=== PATIENT | female | born 1985 | race Caucasian/White ===

== ENCOUNTER 2024-07-06 06:50 | Day surgery (SDC) | payer OTHER, SELFPAY ==
[2024-07-06] VITALS (11 sets, daily range): BP systolic 116–146; BP diastolic 71–103; BMI 30.6
[2024-07-06] MEDS: TYLENOL 1000 MG PO (10:57)
--- NOTE | 2024-07-06 11:20 | W.SUR.PREOP ---
Pre-Operative Surgical Note
-
I have examined this patient prior to the performance of the scheduled procedure.
The patient's condition is unchanged from the time of the current History and
Physical and the patient is able to undergo the scheduled procedure.
--- NOTE | 2024-07-06 13:34 | W.IMMPOSTOP ---
Addendum entered and electronically signed by Konstantin Neri MD 07/06/24 14:14:
#[id number]
Original Note:
Surgical Immed Post Op Note
-
Primary Surgeon: Halle
Assisting Surgeon: Alissa Arredondo PA-c
Pre-op Diagnosis: Recurrent UH
Post-op Diagnosis: Recurrent UH - 2cm
Procedure Performed: RAL ELSA repair recurrent UH with mesh - soft mesh 10cm x 7.5cm
Anesthesia Type: GETA + 0.25% Marcaine
Specimen / Cultures: none
Estimated Blood Loss: 6mL
Complications: none immediate
Operative Findings: recurrent UH ~2cm; prior steel suture material removed - no mesh visualized. ELSA repair. closure of fascia with 0 PDS strattafix. underlay preperitoneal repair - 10cm x 7.5cm.
The assistance of Alissa Arredondo PA-C was required due to the complexity of the procedure. During the procedure Alissa Arredondo PA-C assisted with port placement, robotic instrumentation and suture material exchanges, and closure of the surgical incision
sites. I was present for the entirety of the operative procedure.
updated post op in waiting area
[2024-07-06] MEDS: ZOFRAN 4 MG IV (14:11)
== END 2024-07-06 16:35 | disposition home or self-care (01) ==
LOC: SDS 06:50
PROVIDERS: ATTENDING PHYSICIAN Surgery
PROC: 8E0W4CZ Robotic Assisted Procedure of Trunk Region, Percutaneous Endoscopic Approach (ICD-10-PCS; 2024-07-06)
PROC: 0WUF4JZ Supplement Abdominal Wall with Synthetic Substitute, Percutaneous Endoscopic Approach (ICD-10-PCS; 2024-07-06)
DX: K42.9 Umbilical hernia without obstruction or gangrene (principal)
CPT/HCPCS: 49613